=== PATIENT | female | born 1995 | race Caucasian/White ===

== ENCOUNTER 2023-10-03 09:44 | Emergency (ER) | payer MEDICAID ==
[~2023-10-03] VITALS: Ht 154.9 cm; Wt 70.3 kg
[2023-10-03 10:02] VITALS: BP 132/85; PULSE 96; RESP 20; TEMP 97.2; O2SAT 99
[2023-10-03 11:24] LABS: BASOPHILS % (AUTO) 0.1 % (0.0-2.0); EOSINOPHILS % (AUTO) 0.1 % (0.0-4.0); HEMATOCRIT 41.6 % (36-48); LYMPHOCYTES # (AUTO) 0.9 K/uL (2.5-16.5); LYMPHOCYTES % (AUTO) 8.2 % (20.5-51.1); MEAN CORPUSCULAR HEMOGLOBIN 29 pg (27-31); MEAN CORPUSCULAR HGB CONC 34 g/dL (33-37); MEAN CORPUSCULAR VOLUME 86.1 fL (80-94); MONOCYTES # (AUTO) 0.6 K/uL (0.8-1.0); MONOCYTES % (AUTO) 5.1 % (1.7-9.3); NEUTROPHILS # (AUTO) 9.8 K/uL (1.8-7.7); NEUTROPHILS % (AUTO) 86.5 % (42.2-75.2); PLATELET COUNT (AUTO) 295 K/uL (140-450); RED BLOOD CELL COUNT(AUTO) 4.83 MIL/uL (4.20-5.40); WHITE BLOOD COUNT (AUTO) 11.4 K/uL (4.8-10.8)
[2023-10-03] MEDS: NACL 0.9% 1,000 ML IV ONE (11:27)
[2023-10-03 11:37] LABS: ANION GAP 15.6 (8-16); CALCIUM 9.4 mg/dL (8.5-10.1); CARBON DIOXIDE 23.7 mmol/L (21-32); CREATININE 0.8 mg/dL (0.6-1.3); POTASSIUM 3.3 mmol/L (3.5-5.1)
[2023-10-03] MEDS ORDERED: LOPE-143 PO (13:05)
[2023-10-03] MEDS ORDERED: ONDA-188 PO (13:05)
[2023-10-03] MEDS: POTASSIUM CHLORIDE 10 MEQ TABER PO ONE (13:20)
[2023-10-03] MEDS: MAGNESIUM OXIDE 400 MG TAB PO ONE (13:22)
[2023-10-03 13:59] VITALS: BP 111/65; PULSE 99; RESP 13; TEMP 97.2; O2SAT 100
== END 2023-10-03 13:59 | disposition home or self-care (01) ==
LOC: MED 09:44
DX: E87.6 Hypokalemia (principal); R19.7 Diarrhea, unspecified; R11.2 Nausea with vomiting, unspecified; F17.200 Nicotine dependence, unspecified, uncomplicated; F12.90 Cannabis use, unspecified, uncomplicated; R03.0 Elevated blood-pressure reading, without diagnosis of hypertension; F10.90 Alcohol use, unspecified, uncomplicated; F41.9 Anxiety disorder, unspecified; F32.9 Major depressive disorder, single episode, unspecified; Z71.6 Tobacco abuse counseling; Z79.1 Long term (current) use of non-steroidal anti-inflammatories (NSAID); Z79.899 Other long term (current) drug therapy
CPT/HCPCS: 36415; 80048; 81025; 84443; 85025; 93005; 96360; 99284; J7030

== ENCOUNTER 2023-10-13 22:41 | Emergency (ER) | payer MEDICAID ==
[~2023-10-13] VITALS: Ht 154.9 cm; Wt 70.3 kg
[~2023-10-13 22:41] MED LIST: LOPE-143 PO; ONDA-188 PO
[2023-10-13 22:50] VITALS: BP 130/79; PULSE 110; RESP 18; TEMP 97.1; O2SAT 99
[2023-10-13 23:34] LABS: APPEARANCE,URINE CLEAR (CLEAR); BILIRUBIN,URINE NEGATIVE (NEGATIVE); BLOOD, URINE NEGATIVE (NEGATIVE); COLOR,URINE YELLOW (YELLOW); LEUKOCYTE ESTERASE ,URINE NEGATIVE (NEGATIVE); NITRITE, URINE NEGATIVE (NEGATIVE); PROTEIN,URINE NEGATIVE (NEGATIVE); UGLUCOSE NEGATIVE (NEGATIVE); UROBILINOGEN,URINE 0.2 EU/dL (0.2 - 1)
[2023-10-14] MEDS ORDERED: BEN10 PO (00:37)
[2023-10-14] MEDS ORDERED: ONDA-188 SL (00:37)
[2023-10-14] MEDS ORDERED: MIRABULK PO (00:37)
== END 2023-10-14 00:38 | disposition home or self-care (01) ==
LOC: MED 22:41
DX: R10.84 Generalized abdominal pain (principal); K59.00 Constipation, unspecified; F41.9 Anxiety disorder, unspecified; F12.90 Cannabis use, unspecified, uncomplicated; Z71.6 Tobacco abuse counseling; Z87.891 Personal history of nicotine dependence; Z79.899 Other long term (current) drug therapy
CPT/HCPCS: 81003; 81025; 99283

== ENCOUNTER 2023-11-19 22:13 | Emergency (ER) | payer MEDICAID ==
[~2023-11-19] VITALS: Ht 154.9 cm; Wt 70.3 kg
[~2023-11-19 22:13] MED LIST changes: +BEN10 PO; +MIRABULK PO; +ONDA-188 SL
[2023-11-19 22:29] VITALS: BP 132/70; PULSE 82; RESP 18; TEMP 100.2; O2SAT 98
[2023-11-20 03:59] LABS: FLU A ANTIGEN negative (NEGATIVE); FLU B ANTIGEN NEGATIVE (NEGATIVE)
[2023-11-20 04:10] VITALS: BP 132/70; PULSE 82; RESP 18; TEMP 100.2; O2SAT 98
== END 2023-11-20 04:10 | disposition home or self-care (01) ==
LOC: MED 22:13
DX: U07.1 COVID-19 (principal); Z79.899 Other long term (current) drug therapy
CPT/HCPCS: 71045; 81025; 87426; 87804; 99284; Q0092